=== PATIENT | male | born 1945 | race Caucasian/White ===

== ENCOUNTER 2023-02-26 08:36 | Day surgery (SDC) | payer MEDICARE ==
[2023-02-26] MEDS ORDERED: DIPRIVAN 200 MG/20 ML IV ONE (11:39)
== END 2023-02-26 10:30 | disposition home or self-care (01) ==
LOC: SDC-PAIN 08:36
PROVIDERS: ATTEND Psychiatry & Neurology Pain Medicine
DX: Z53.8 Procedure and treatment not carried out for other reasons (principal)
CPT/HCPCS: 82947; J2704

== ENCOUNTER 2023-03-05 07:58 | Day surgery (SDC) | payer MEDICARE ==
[2023-03-05] MEDS ORDERED: LIDOCAINE HCL 2% 100 MG/5 ML IJ ONE (07:59)
[2023-03-05] MEDS ORDERED: DIPRIVAN 200 MG/20 ML IV ONE (09:51)
[2023-03-05] MEDS ORDERED: Lactated Ringers 1,000 ML IV ONE (11:06)
--- NOTE | 2023-03-05 11:26 | XRAY ---
Indication: Right L4-S1 MBB. Intraoperative fluoroscopy provided for 17 seconds. Single digital spot images submitted for interpretation demonstrates posterior needle tips projecting over the expected right L4-S1 nerve roots. Small amount of contrast injected for needle tip placement. Correlate with intraoperative findings/report.
--- NOTE | 2023-03-05 13:36 | XRAY ---
17 seconds of fluoroscopy was used in surgery for a right L4-S1 MBB.
== END 2023-03-05 10:22 | disposition home or self-care (01) ==
LOC: SDC-PAIN 07:58
PROVIDERS: ATTEND Psychiatry & Neurology Pain Medicine
DX: M47.816 Spondylosis without myelopathy or radiculopathy, lumbar region (principal); E10.9 Type 1 diabetes mellitus without complications; Z79.899 Other long term (current) drug therapy
CPT/HCPCS: 64493; 64494; 72020; 77002; 82947; J2704